=== PATIENT | female | born 1985 | race Asian ===

== ENCOUNTER 2017-06-01 16:26 | Outpatient (CLI) | payer MEDICAID ==
--- NOTE | 2017-06-02 18:26 | XRAY Report ---
EXAM: LEFT FOOT RADIOGRAPHY EXAM DATE: 06/01/2017 04:30 PM. CLINICAL HISTORY: FOOT PX LEFT. COMPARISON: None. TECHNIQUE: 3 views. FINDINGS: Bones: Normal. No fractures or bone lesions. Joints: Normal. No subluxations. Soft Tissues: Normal. No soft tissue swelling. IMPRESSION: Normal foot radiography. [facility] Referring Provider Line: [phone] SITE ID: [id number]
== END 2017-06-01 16:27 | disposition home or self-care (01) ==
LOC: DI.S 16:26
PROVIDERS: ATTEND Nurse Practitioner Family
DX: M79.672 Pain in left foot (principal)

== ENCOUNTER 2017-10-15 12:25 | Outpatient (CLI) | payer MEDICAID ==
--- NOTE | 2017-10-16 11:14 | Ultrasound Report ---
OB ULTRASOUND: 10/15/2017 CLINICAL INDICATION: anatomy. TECHNIQUE: Real-time scanning was performed with hospital sales representative static images obtained. LAST MENSTRUAL PERIOD 05/23/2017 Clinical Age 20 weeks 5 days US Age 21 weeks 0 days EFW Hadlock 392 g EFW% Hadlock --- Heart Rate 157 bpm EDC 02/27/2018 US EDC 02/25/2018 BPD [place] 21 weeks 2 days; Mean mm 50.5 HC [place] 20 weeks 5 days; Mean mm 184.1 AC [place]lock 21 weeks 3 days; Mean mm 164.5 FL [place]lock 20 weeks 3 days; Mean mm 33.3 Presentation variable Placental Location posterior Cervical Length 5.0 cm Amniotic Fluid 4.7 cm FINDINGS: There is a single viable intrauterine gestation, in variable position. heart rate is 157 BPM. The placenta is posterior, without evidence of previa. Amniotic fluid volume is subjectively normal, with the deepest pocket of 4.7 cm. By size, the fetus measures 21 weeks 0 days (20 weeks 5 days per physician order). The following anatomic structures were visualized and appear normal: The intracranial contents, including the ventricles and posterior fossa; the lips and orbits; the spine; the heart, including 4 chamber view and outflow tracts, and diaphragm; the abdominal contents, including the stomach, the bilateral kidneys, and urinary bladder, as well as a normal 3 vessel cord insertion; 4 limbs. No free fluid or adnexal lesion is appreciated. IMPRESSION: SINGLE VIABLE INTRAUTERINE GESTATION, WITH SIZE IN KEEPING WITH OFFICE DATING. NORMAL ANATOMIC SURVEY. [facility]
== END 2017-10-15 12:26 | disposition home or self-care (01) ==
LOC: DI 12:25
PROVIDERS: ATTEND Obstetrics & Gynecology
DX: Z36.9 Encounter for antenatal screening, unspecified (principal)
CPT/HCPCS: 76811

== ENCOUNTER 2017-10-30 08:27 | Outpatient (CLI) | payer MEDICAID | END 2017-10-30 08:28 | disposition home or self-care (01) | LOC: LAB.F 08:27 → LAB 08:28 | PROVIDERS: ATTEND Obstetrics & Gynecology | DX: Z36.9 Encounter for antenatal screening, unspecified (principal) | CPT/HCPCS: 36415; 82950; 85018; 86850 ==

== ENCOUNTER 2017-12-05 07:54 | Outpatient (CLI) | payer MEDICAID | END 2017-12-05 07:55 | disposition home or self-care (01) | LOC: LAB 07:54 | PROVIDERS: ATTEND Obstetrics & Gynecology | DX: Z34.90 Encounter for supervision of normal pregnancy, unspecified, unspecified trimester (principal) | CPT/HCPCS: 36415; 82950 ==

== ENCOUNTER 2023-09-19 14:55 | Outpatient (CLI) | payer MEDICAID ==
[2023-09-19 20:00] LABS: BASOPHILS % (AUTO) 0.3 %; EOSINOPHILS # (AUTO) 0.1 10^3/uL (0.0-0.7); EOSINOPHILS % (AUTO) 2.5 %; LYMPHOCYTES # (AUTO) 0.7 10^3/uL (1.5-3.5); LYMPHOCYTES % (AUTO) 19.1 %; MEAN CORPUSCULAR HEMOGLOBIN 18.1 pg (27.0-31.0); MEAN CORPUSCULAR HGB CONC 25.8 g/dL (32.0-36.0); MEAN CORPUSCULAR VOLUME 70.3 fL (81.0-99.0); MEAN PLATELET VOLUME 12.1 fL (7.9-10.8); MONOCYTES # (AUTO) 0.3 10^3/uL (0.0-1.0); MONOCYTES % (AUTO) 6.9 %; NEUTROPHILS # (AUTO) 2.6 10^3/uL (1.5-6.6); NEUTROPHILS % (AUTO) 70.6 %; PLT - PLATELET COUNT 252 10^3/uL (130-450); RED BLOOD COUNT 2.32 10^6/uL (4.20-5.40); RED CELL DISTRIBUTION WIDTH 16.1 % (12.0-15.0); WHITE BLOOD COUNT 3.6 x10^3/uL (4.8-10.8)
[2023-09-19 20:16] LABS: ALBUMIN 4.3 g/dL (3.2-5.5); ALKALINE PHOSPHATASE 44 IU/L (42-121); ALT ALANINE AMINOTRANSFERASE 50 IU/L (10-60); AST ASPARTATE AMINOTRANSFERASE 32 IU/L (10-42); BILIRUBIN,TOTAL 0.3 mg/dL (0.2-1.0); BUN - BLOOD UREA NITROGEN 7 mg/dL (6-20); CALCIUM 8.9 mg/dL (8.5-10.3); CARBON DIOXIDE - CO2 30 mmol/L (21-32); CHLORIDE 103 mmol/L (101-111); CREATININE 0.5 mg/dL (0.6-1.3); CRP - C-REACTIVE PROTEIN < 0.5 mg/dL (<0.5); GFR - MDRD 137 (>89); GLUCOSE 129 mg/dL (74-104); POTASSIUM 3.5 mmol/L (3.5-4.5); SODIUM 138 mmol/L (135-145); TOTAL PROTEIN 6.4 g/dL (6.4-8.9)
[2023-09-19 20:30] LABS: HCT - HEMATOCRIT 16.3 % (37.0-47.0); HGB - HEMOGLOBIN 4.2 g/dL (12.0-16.0)
[2023-09-19 21:04] LABS: PLATELET ESTIMATE, MANUAL NORMAL (130-450,000) (NORMAL); PLATELET MORPHOLOGY NORMAL APPEARANCE (NORMAL); SLIDE REVIEW? Indicated
== END 2023-09-19 14:56 | disposition home or self-care (01) ==
LOC: LAB.S 14:55
PROVIDERS: ATTEND Registered Nurse
DX: R00.2 Palpitations (principal); R51.9 Headache, unspecified; M54.2 Cervicalgia
CPT/HCPCS: 36415; 80053; 85025; 86140

== ENCOUNTER 2023-09-19 21:30 | Observation (INO) | payer MEDICAID ==
[2023-09-19 21:56] LABS: BASOPHILS % (AUTO) 0.3 %; EOSINOPHILS # (AUTO) 0.1 10^3/uL (0.0-0.7); LYMPHOCYTES # (AUTO) 0.9 10^3/uL (1.5-3.5); LYMPHOCYTES % (AUTO) 26.1 %; MEAN CORPUSCULAR HEMOGLOBIN 17.4 pg (27.0-31.0); MEAN CORPUSCULAR HGB CONC 24.7 g/dL (32.0-36.0); MEAN CORPUSCULAR VOLUME 70.5 fL (81.0-99.0); MEAN PLATELET VOLUME 11.3 fL (7.9-10.8); MONOCYTES # (AUTO) 0.3 10^3/uL (0.0-1.0); MONOCYTES % (AUTO) 9.3 %; NEUTROPHILS % (AUTO) 60.7 %; PLT - PLATELET COUNT 214 10^3/uL (130-450); RED BLOOD COUNT 2.24 10^6/uL (4.20-5.40); RED CELL DISTRIBUTION WIDTH 15.9 % (12.0-15.0); WHITE BLOOD COUNT 3.3 x10^3/uL (4.8-10.8)
[2023-09-19 22:00] LABS: HCT - HEMATOCRIT 15.8 % (37.0-47.0); HGB - HEMOGLOBIN 3.9 g/dL (12.0-16.0)
[2023-09-19 22:15] LABS: INR 1.1 (0.8-1.2); PT - PROTHROMBIN TIME 11.8 secs (9.9-12.6)
--- NOTE | 2023-09-19 22:16 | ED Physician Documentation ---
History of Present Illness - Stated complaint Stated Complaint: CANCHOLA/DIZZY - Chief complaint Chief Complaint: Neuro - History obtained from History obtained from: Patient - History of Present Illness Timing: Today Pain level max: 0 Pain level now: 0 - Additonal information Additional information: Patient is a 38-year-old female who has been feeling fatigued short of breath for the past several months. Went and saw the walk-in clinic today and had blood work done. Hemoglobin was 4.2. Sent here for evaluation. She states that she used to have menses that were 1 week long, but since having an IUD there down to 2 days. She states she does not eat much meat. Is not on any iron supplementation. Does not have heavy vaginal bleeding. No rectal bleeding. Not on any blood thinners. Worse with ambulation, better with rest. 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 - Present Medications Home Medications: Ambulatory Orders Medication Instructions Recorded Confirmed Meloxicam 15 mg PO DAILY 09/19/23 09/19/23 - Allergies Allergies/Adverse Reactions: Allergies Allergy/AdvReac Type Severity Reaction Status Date / Time Sulfa (Sulfonamide Allergy Severe Hives Verified 09/19/23 21:48 Antibiotics) - Social History Does the pt smoke?: No Smoking Status: Never smoker Does the pt drink ETOH?: No Does the pt have substance abuse?: No - Immunizations Immunizations are current?: Yes - POLST Patient has POLST: No PD ED PE NORMAL - Vitals Vital signs reviewed: Yes - General General: Alert and oriented X 3, No acute distress, Other (very pale appearing) - HEENT HEENT: PERRL, Other (pale conjunctiva) - Neck Neck: Supple, no meningeal sign - Cardiac Cardiac: RRR - Respiratory Respiratory: No respiratory distress, Clear bilaterally - Abdomen Abdomen: Soft, Non tender, Non distended - Female Female : Pt declined - Rectal Rectal: Pt declined - Derm Derm: Warm and dry - Extremities Extremities: No edema, No calf tenderness / cord - Neuro Neuro: Alert and oriented X 3 - Psych Psych: Normal mood, Normal affect Results - Vitals Vitals: Vital Signs - 24 hr 09/19/23 21:35 Temperature 37.2 C Heart Rate 100 Respiratory 14 Rate Blood Pressure 118/62 O2 Saturation 100 Oxygen O2 Source Room air - Labs Labs: Laboratory Tests 09/19/23 09/19/23 09/19/23 21:49 21:49 21:49 WBC 3.3 L RBC 2.24 L Hgb 3.9 L* Hct 15.8 L* MCV 70.5 L MCH 17.4 L MCHC 24.7 L RDW 15.9 H Plt Count 214 MPV 11.3 H Neut # (Auto) 2.0 Lymph # (Auto) 0.9 L [place] # (Auto) 0.3 Eos # (Auto) 0.1 Baso # (Auto) 0.0 Absolute Nucleated RBC 0.00 Nucleated RBC % 0.0 PT 11.8 INR 1.1 APTT 31.0 Sodium Potassium Chloride Carbon Dioxide Anion Gap BUN Creatinine Estimated GFR (MDRD) Glucose Calcium Total Bilirubin AST ALT Alkaline Phosphatase Total Protein Albumin Globulin Albumin/Globulin Ratio Urine Color Urine Clarity Urine pH Ur Specific [place] Urine Protein Urine Glucose (UA) Urine Ketones Urine Occult Blood Urine Nitrite Urine Bilirubin Urine Urobilinogen Ur Leukocyte Esterase Ur Microscopic Review Urine Culture Comments Urine HCG, Qual Blood Type O POSITIVE Antibody Screen NEGATIVE 09/19/23 09/19/23 21:49 22:35 WBC RBC Hgb Hct MCV MCH MCHC RDW Plt Count MPV Neut # (Auto) Lymph # (Auto) [place] # (Auto) Eos # (Auto) Baso # (Auto) Absolute Nucleated RBC Nucleated RBC % PT INR APTT Sodium 136 Potassium 3.4 L Chloride 104 Carbon Dioxide 27 Anion Gap 5.0 L BUN 9 Creatinine 0.6 Estimated GFR (MDRD) 111 Glucose 109 H Calcium 8.8 Total Bilirubin 0.2 AST 29 ALT 48 Alkaline Phosphatase 42 Total Protein 6.3 L Albumin 4.2 Globulin 2.1 Albumin/Globulin Ratio 2.0 Urine Color YELLOW Urine Clarity CLEAR Urine pH 7.0 Ur Specific [place] <=1.005 Urine Protein NEGATIVE Urine Glucose (UA) NEGATIVE Urine Ketones NEGATIVE Urine Occult Blood NEGATIVE Urine Nitrite NEGATIVE Urine Bilirubin NEGATIVE Urine Urobilinogen 0.2 (NORMAL) Ur Leukocyte Esterase NEGATIVE Ur Microscopic Review NOT INDICATED Urine Culture Comments NOT INDICATED Urine HCG, Qual NEGATIVE Blood Type Antibody Screen PD Medical Decision Making - ED course Complexity details: reviewed results, re-evaluated patient, considered differential, d/w patient, d/w investment consultant ED course: Patient is a 38-year-old female significant anemia. Hemoglobin of 3.9. MCV is 70.5, there is hypochromasia and microcytic anemia. Likely iron deficiency. Iron studies were sent. Patient is typed and screened. She will require several units of blood, therefore I will place her in observation. She is not on blood thinners. Does not have heavy menses currently. Not on iron supplementation. Discussed the case with the hospitalist who accepts. This document was made in part using voice recognition software. While efforts are made to proofread this document, sound alike and grammatical errors may occur. Departure - Departure Disposition: ED Place in Observation Clinical Impression: Symptomatic anemia Condition: Stable Forms: PCP List
[2023-09-19 22:28] LABS: ALBUMIN 4.2 g/dL (3.2-5.5); BILIRUBIN,TOTAL 0.2 mg/dL (0.2-1.0); CALCIUM 8.8 mg/dL (8.5-10.3); CREATININE 0.6 mg/dL (0.6-1.3); POTASSIUM 3.4 mmol/L (3.5-4.5); TOTAL PROTEIN 6.3 g/dL (6.4-8.9)
[2023-09-19 22:45] LABS: HCG UR QUAL NEGATIVE
[2023-09-19 22:47] LABS: BILIRUBIN,URINE NEGATIVE (NEGATIVE); GLUCOSE, URINE (UA) NEGATIVE (NEGATIVE); KETONES,URINE (UA) NEGATIVE (NEGATIVE); LEUKOCYTE ESTERASE, URINE NEGATIVE (NEGATIVE); NITRITE,URINE NEGATIVE (NEGATIVE); OCCULT BLOOD,URINE NEGATIVE (NEGATIVE); PROTEIN,URINE NEGATIVE (NEGATIVE); UROBILINOGEN,URINE 0.2 (NORMAL) E.U./dL (NORMAL)
[2023-09-19 22:48] LABS: CLARITY,URINE CLEAR (CLEAR)
--- NOTE | 2023-09-19 23:13 | HISTORY & PHYSICAL EXAMINATION ---
Chief Complaint - Chief Complaint Chief Complaint: anemia, fatigue History of Present Illness - Admitted From Admitted From:: home - History Obtained From History obtained from: patient Exam Limitations: telemedicine - History of Present Illness HPI Comment/Other: Ms Mcnally is a 38 yo F with history of C section several years ago, hemorrhoids related to previous pregnancies. She presents to ER from [facility] for further evaluation of anemia, found to have Hgb 3.9. Pt reports for the past 1-2 weeks she has been feeling tired, headaches. Last week she went hiking and had palpitations. Denies fevers, chills, cough, n/v. Denies hematemesis, hematuria. She states she has been having more bleeding from her hemorrhoids since last week, not painful, mainly with wiping but she did have use a pad one day for ongoing bleeding. No prior history of colonoscopy. No prior history of blood transfusion. IUD removed 4 months ago, has 2 days of period, light bleeding. No home medications except vitamin. Does not take iron supplements. Prescribed mobic today at walk in clinic for headache - took 1 dose today. 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 denies: Fever, Chills - Eyes Eyes: denies: Pain, Irritation - Ears, Nose & Throat Ears, Nose & Throat: denies: Ear pain, Hearing loss - Cardiovascular Cariovascular: reports: Palpitations, Lightheadedness. denies: Chest pain - Gastrointestinal Gastrointestinal: reports: Other (bleeding from hemorrhoids since last week). denies: Nausea, Vomiting - Genitourinary Genitourinary: denies: Dysuria, Frequency, Hematuria - Integumentary Integumentary: denies: Rash, Pruritis - Neurological Neurological: reports: Headache. denies: Focal weakness - Hematologic/Lymphatic Hematologic/Lymphatic: reports: Anemia Exam - Vital Signs Reviewed Vital Signs: Yes Vital Signs: Vital Signs x48h Temp Pulse Resp BP Pulse Ox 09/19/23 21:35 37.2 C 100 14 118/62 100 - Physical Exam General Appearance: positive: No acute distress Eyes Bilateral: positive: Normal inspection ENT: positive: ENT inspection nml Neck: positive: Nml inspection Respiratory: positive: No respiratory distress Skin: positive: Color nml, No rash Neurologic/Psychiatric: positive: Oriented x3, Mood/affect nml Conclusion/Plan - Lab Results Fish Bones: 09/19/23 21:49 09/19/23 21:49 - Other Other Results/Comments: Symptomatic microcytic anemia -Pt c/o fatigue, headaches, palpitations -Likely KENTRELL - iron studies are in process -Possibly related to bleeding hemorrhoids, no other known source of bleeding per patient -2 U PRBC ordered, trend H&H -Goal Hgb > 7 -Monitor closely Full code DVT ppx: SCDs Admit for observation. Telemedicine Consult Details - Provider Location & Consult Time Telemedicine consultation conducted via videoconferencing?: Yes List names and roles of persons who participated in consult:: patient, Dr Plasencia Telemedicine provider location:: [place], [place]
[2023-09-19] MEDS ORDERED: SODIUM CHLORIDE FLUSH 0.9% 10 ML SYRINGE IVP PRN (23:18)
[2023-09-19 23:25] LABS: IRON < 10 ug/dL (50-212); TOTAL IRON BINDING CAPACITY 519 ug/dL (250-450); TRANSFERRIN 371 mg/dL (203-362)
[2023-09-20] MEDS: SODIUM CHLORIDE FLUSH 0.9% 10 ML SYRINGE IVP SCH (00:08)
[2023-09-20 08:59] LABS: HCT - HEMATOCRIT 24.6 % (37.0-47.0); HGB - HEMOGLOBIN 7.1 g/dL (12.0-16.0)
--- NOTE | 2023-09-20 11:06 | PHARMACY PROGRESS NOTE ---
- Best Possible Medication History Admit Date and Time: 09/19/23 2138 Processed by: Nursing As the person ultimately responsible for medication therapy, providers are able to order a medication from an existing home medication list in [facility] via the "Reconcile Routine" prior to Confirmation of that medication by technician support engineer. Such practice is discouraged except when the physician, in their clinical judgment, deems that a medical need exists for a medication without regard to previous use.
[2023-09-20 15:09] LABS: HCT - HEMATOCRIT 23.9 % (37.0-47.0)
[2023-09-20 15:13] LABS: HGB - HEMOGLOBIN 6.9 g/dL (12.0-16.0)
[2023-09-20 19:04] VITALS: O2SAT 98
--- NOTE | 2023-09-20 19:35 | DISCHARGE SUMMARY ---
"Discharge Summary Admit Date: 09/19/23 Discharge Date: 09/20/23 Discharging Provider: Anam Quiles Primary Care Provider: She does not have a primary care provider at this time. Condition at Discharge: Good Discharge Disposition: Home, Self Care Discharge Facility Name: Home - DIAGNOSES Admission Diagnoses: 1 Symptomatic Anemia Discharge Diagnoses with Status of Each Condition: 1. Symptomatic Anemia 2. Iron deficiency Anemia - HPI History of Present Illness: Genet Mcnally is a 38-year-old woman who presented to an acute care clinic with complaints of feeling tired, headache and weakness. Hemoglobin was found to be 4.2. She was admitted as an observation patient and transfused 2 units of packed red blood cells. Her hemoglobin/hematocrit approximately 6 hours after second unit of packed red blood cells was 6.9/23.9 and she was transfused 1 more unit of packed red blood cells. Her chemistry panel was normal and her iron level was less than 10 with a TIBC of 519 and a transferrin of 371. Patient most likely has iron deficiency anemia and it was recommended that she take iron tablets every other day and establish care with a primary care provider. Prior to discharge, patient is alert and oriented to person time place and situation. She feels much better after receiving 3 units of packed red blood cells and she is hemodynamically stable. - HOSPITAL COURSE Hospital Course: See history of present illness - ALLERGIES Allergies/Adverse Reactions: Allergies Allergy/AdvReac Type Severity Reaction Status Date / Time Sulfa (Sulfonamide Allergy Severe Hives Verified 09/19/23 21:48 Antibiotics) - MEDICATIONS Home Medications Other | Comments: Recommend obtaining ferrous sulfate tablets (iron tablets) from a local pharmacy and take 1 tablet every other day. - PHYSICAL EXAM AT DISCHARGE General Appearance: positive: No acute distress Eyes Bilateral: positive: Normal inspection Neck: positive: No JVD, Trachea midline Cardiovascular: positive: Regular rate & rhythm, No murmur, No gallop Abdomen: positive: Non-tender, No organomegaly, Nml bowel sounds Skin: positive: No rash Extremities: positive: No pedal edema - LABS Result Diagrams: 09/20/23 15:00 09/19/23 21:49 - QUALITY (Female Hip Fx Only) Was patient sent home on osteoporosis medication?: No (No indication) - FOLLOW UP Follow Up: Recommend establishing care with a primary care provider in the area. If patient has difficulty finding a primary care provider she can contact me (Dr. Anam Quiles) at [phone]. - TIME SPENT Time Spent in Discharge (Minutes): 25"
--- NOTE | 2023-09-20 19:35 | Discharge Plan ---
Discharge Plan Problem Reviewed?: Yes Disposition: Home, Self Care Condition: Good Diet: Regular Activity Restrictions: Activity as Tolerated Shower Restrictions: No Driving Restrictions: No Weight Bearing: Full Weight Health Concerns: Genet Mcnally is a 38-year-old woman who presented to an acute care clinic with complaints of feeling tired, headache and weakness. Hemoglobin was found to be 4.2. She was admitted as an observation patient and transfused 2 units of packed red blood cells. Her hemoglobin/hematocrit approximately 6 hours after second unit of packed red blood cells was 6.9/23.9 and she was transfused 1 more unit of packed red blood cells. Her chemistry panel was normal and her iron level was less than 10 with a TIBC o f 519 and a transferrin of 371. Patient most likely has iron deficiency anemia and it was recommended that she take iron tablets every other day and establish care with a primary care provider. Prior to discharge, patient is alert and oriented to person time place and situation. She feels much better after receiving 3 units of packed red blood cells and she is hemodynamically stable. Plan of Treatment: 1. Take all medications as directed. 2. Recommend obtaining ferrous sulfate tablets (iron tablets) from a local pharmacy and take 1 tablet every other day. 3. Recommend obtaining Colace or other stool softener. Alternatively patient may eat 6 prunes a day and increase the fiber in her diet. 4. Recommend establishing care with a primary care provider in the area. 5. If patient has difficulty finding a primary care provider she can contact me (Dr. Anam Quiles) at [phone]. Care Goals: Goal is to have her blood counts return to her normal level. Assessment: The etiology of patient's anemia is not clear but most likely is secondary to iron deficiency anemia. She has no evidence of acute hemorrhage. Her menses appear to be normal with no significant change. She does complain of some bleeding associated with hemorrhoids intermittently. Plan is for her to establish care with a primary care provider and to take iron tablets every other day. No Smoking: If you smoke, Please STOP! Call for help. Follow-up with: HILARIO BARRERA MD [Physician No Access] -
[2023-09-20 21:17] VITALS: BP 111/64
== END 2023-09-20 21:33 | disposition home or self-care (01) ==
LOC: ED 21:30 → MS2 23:18
PROVIDERS: ADMIT Student in an Organized Health Care Education/Training Program; ATTEND Internal Medicine
DX: D50.9 Iron deficiency anemia, unspecified (principal); Z87.19 Personal history of other diseases of the digestive system
CPT/HCPCS: 36415; 36430; 80053; 81003; 81025; 83540; 84466; 85014; 85018; 85025; 85610; 85730; 86850; 86900; 86901; 86920; 99283; 99285; G0378; P9016; 81001; 87086

== ENCOUNTER 2023-10-17 08:58 | Outpatient (CLI) | payer MEDICAID ==
[2023-10-17 15:04] LABS: ABSOLUTE RETICS # AUTO 0.123 10^6/uL (0.020-0.110); BASOPHILS % (AUTO) 0.6 %; EOSINOPHILS # (AUTO) 0.1 10^3/uL (0.0-0.7); EOSINOPHILS % (AUTO) 3.4 %; HCT - HEMATOCRIT 29.1 % (37.0-47.0); HGB - HEMOGLOBIN 7.9 g/dL (12.0-16.0); LYMPHOCYTES # (AUTO) 0.5 10^3/uL (1.5-3.5); LYMPHOCYTES % (AUTO) 16.5 %; MEAN CORPUSCULAR HEMOGLOBIN 22.4 pg (27.0-31.0); MEAN CORPUSCULAR HGB CONC 27.1 g/dL (32.0-36.0); MEAN CORPUSCULAR VOLUME 82.7 fL (81.0-99.0); MEAN PLATELET VOLUME 10.8 fL (7.9-10.8); MONOCYTES # (AUTO) 0.2 10^3/uL (0.0-1.0); MONOCYTES % (AUTO) 7.5 %; NEUTROPHILS # (AUTO) 2.3 10^3/uL (1.5-6.6); PLT - PLATELET COUNT 240 10^3/uL (130-450); RED BLOOD COUNT 3.52 10^6/uL (4.20-5.40); RED CELL DISTRIBUTION WIDTH 21.8 % (12.0-15.0); RETICULOCYTE COUNT % (AUTO) 3.48 % (0.5-2.3); SLIDE REVIEW? Indicated; WHITE BLOOD COUNT 3.2 x10^3/uL (4.8-10.8)
[2023-10-17 15:37] LABS: PLATELET ESTIMATE, MANUAL NORMAL (130-450,000) (NORMAL); PLATELET MORPHOLOGY NORMAL APPEARANCE (NORMAL)
[2023-10-17 16:51] LABS: ALBUMIN 4.4 g/dL (3.2-5.5); ALBUMIN/GLOBULIN RATIO 1.9 (1.0-2.2); BILIRUBIN,TOTAL 0.5 mg/dL (0.2-1.0); CREATININE 0.5 mg/dL (0.6-1.3); POTASSIUM 3.8 mmol/L (3.5-4.5); TOTAL PROTEIN 6.7 g/dL (6.4-8.9)
[2023-10-17 17:32] LABS: THYROID STIMULATING HORMONE 1.11 uIU/mL (0.34-5.60)
[2023-10-17 17:38] LABS: FERRITIN 6.1 ng/mL (11.0-306.8)
== END 2023-10-17 08:59 | disposition home or self-care (01) ==
LOC: LAB.S 08:58
PROVIDERS: ATTEND Family Medicine
DX: D64.9 Anemia, unspecified (principal)
CPT/HCPCS: 36415; 80053; 81599; 82728; 84443; 85025; 85045; 85660

== ENCOUNTER 2023-11-29 08:53 | Outpatient (CLI) | payer MEDICAID ==
[2023-11-29 14:36] LABS: EOSINOPHILS % (AUTO) 4.3 %; HCT - HEMATOCRIT 44.1 % (37.0-47.0); HGB - HEMOGLOBIN 12.8 g/dL (12.0-16.0); LYMPHOCYTES % (AUTO) 22.4 %; MEAN CORPUSCULAR HEMOGLOBIN 24.3 pg (27.0-31.0); MEAN CORPUSCULAR VOLUME 83.7 fL (81.0-99.0); MEAN PLATELET VOLUME 11.1 fL (7.9-10.8); MONOCYTES % (AUTO) 10.4 %; NEUTROPHILS % (AUTO) 61.9 %; PLT - PLATELET COUNT 209 10^3/uL (130-450); RED BLOOD COUNT 5.27 10^6/uL (4.20-5.40); RED CELL DISTRIBUTION WIDTH 17.9 % (12.0-15.0)
[2023-11-29 15:48] LABS: ABNORMAL LYMPHS % (MANUAL) 3 %; BAND NEUTROPHILS % (MANUAL) 1 %; BASOPHILS % (MANUAL) 1 %; DIFFERENTIAL COMMENT MANUAL DIFFERENTIAL; EOSINOPHILS # (MANUAL) 0.2 10^3/uL (0-0.7); LYMPHOCYTES # (MANUAL) 0.6 10^3/uL (1.5-3.5); LYMPHOCYTES % (MANUAL) 15 %; METAMYELOCYTES % (MANUAL) 1 %; MONOCYTES # (MANUAL) 0.2 10^3/uL (0.0-1.0); NEUTROPHILS # (MANUAL) 2.1 10^3/uL (1.5-6.6); PLATELET ESTIMATE, MANUAL NORMAL (130-450,000) (NORMAL); PLATELET MORPHOLOGY NORMAL APPEARANCE (NORMAL); REACTIVE LYMPHS % (MANUAL) 1 %
== END 2023-11-29 08:54 | disposition home or self-care (01) ==
LOC: LAB.S 08:53
PROVIDERS: ATTEND Family Medicine
DX: D64.9 Anemia, unspecified (principal)
CPT/HCPCS: 36415; 85025

== ENCOUNTER 2024-01-25 11:08 | Outpatient (CLI) | payer MEDICAID ==
[2024-01-25 14:31] LABS: BASOPHILS % (AUTO) 0.7 %; EOSINOPHILS # (AUTO) 0.2 10^3/uL (0.0-0.7); HCT - HEMATOCRIT 42.1 % (37.0-47.0); HGB - HEMOGLOBIN 13.2 g/dL (12.0-16.0); LYMPHOCYTES # (AUTO) 0.9 10^3/uL (1.5-3.5); LYMPHOCYTES % (AUTO) 20.3 %; MEAN CORPUSCULAR HEMOGLOBIN 26.2 pg (27.0-31.0); MEAN CORPUSCULAR HGB CONC 31.4 g/dL (32.0-36.0); MEAN CORPUSCULAR VOLUME 83.7 fL (81.0-99.0); MEAN PLATELET VOLUME 10.8 fL (7.9-10.8); MONOCYTES # (AUTO) 0.3 10^3/uL (0.0-1.0); MONOCYTES % (AUTO) 6.8 %; NEUTROPHILS # (AUTO) 3.1 10^3/uL (1.5-6.6); PLT - PLATELET COUNT 264 10^3/uL (130-450); RED BLOOD COUNT 5.03 10^6/uL (4.20-5.40); RED CELL DISTRIBUTION WIDTH 17.4 % (12.0-15.0); WHITE BLOOD COUNT 4.6 x10^3/uL (4.8-10.8)
[2024-01-29 16:19] LABS: T-TRANSGLUTAMINASE (TTG) IGA <2 U/mL (0-3); T-TRANSGLUTAMINASE (TTG) IGG 5 U/mL (0-5)
[2024-01-30 04:10] LABS: ENDOMYSIAL IGA Negative (Negative)
== END 2024-01-25 11:09 | disposition home or self-care (01) ==
LOC: LAB.S 11:08
PROVIDERS: ATTEND Student in an Organized Health Care Education/Training Program
DX: D64.9 Anemia, unspecified (principal); Z13.810 Encounter for screening for upper gastrointestinal disorder
CPT/HCPCS: 36415; 82728; 82784; 85025; 86231; 86364

== ENCOUNTER 2024-02-08 07:16 | Outpatient (CLI) | payer MEDICAID ==
[2024-02-08 15:01] LABS: HCT - HEMATOCRIT 41.3 % (37.0-47.0); HGB - HEMOGLOBIN 12.6 g/dL (12.0-16.0); MEAN CORPUSCULAR HEMOGLOBIN 26.9 pg (27.0-31.0); MEAN CORPUSCULAR HGB CONC 30.5 g/dL (32.0-36.0); MEAN CORPUSCULAR VOLUME 88.2 fL (81.0-99.0); MEAN PLATELET VOLUME 10.9 fL (7.9-10.8); RED BLOOD COUNT 4.68 10^6/uL (4.20-5.40); RED CELL DISTRIBUTION WIDTH 16.8 % (12.0-15.0); WHITE BLOOD COUNT 3.9 x10^3/uL (4.8-10.8)
[2024-02-08 16:03] LABS: THYROID STIMULATING HORMONE 1.11 uIU/mL (0.34-5.60)
[2024-02-08 16:07] LABS: FERRITIN 42.9 ng/mL (11.0-306.8)
[2024-02-08 16:09] LABS: PROLACTIN 8.34 ng/mL
== END 2024-02-08 07:17 | disposition home or self-care (01) ==
LOC: LAB.S 07:16
PROVIDERS: ATTEND Family Medicine
DX: D64.9 Anemia, unspecified (principal); Z13.811 Encounter for screening for lower gastrointestinal disorder; N92.6 Irregular menstruation, unspecified
CPT/HCPCS: 36415; 82728; 83001; 84146; 84443; 85027

== ENCOUNTER 2024-04-11 08:13 | Emergency (ER) | payer MEDICAID ==
[2024-04-11 09:19] LABS: BASOPHILS % (AUTO) 0.8 %; EOSINOPHILS # (AUTO) 0.2 10^3/uL (0.0-0.7); EOSINOPHILS % (AUTO) 4.8 %; HGB - HEMOGLOBIN 13.2 g/dL (12.0-16.0); LYMPHOCYTES # (AUTO) 0.9 10^3/uL (1.5-3.5); LYMPHOCYTES % (AUTO) 25.2 %; MEAN CORPUSCULAR HEMOGLOBIN 30.3 pg (27.0-31.0); MEAN CORPUSCULAR HGB CONC 33.8 g/dL (32.0-36.0); MEAN CORPUSCULAR VOLUME 89.4 fL (81.0-99.0); MEAN PLATELET VOLUME 10.5 fL (7.9-10.8); MONOCYTES # (AUTO) 0.3 10^3/uL (0.0-1.0); MONOCYTES % (AUTO) 6.7 %; NEUTROPHILS # (AUTO) 2.3 10^3/uL (1.5-6.6); NEUTROPHILS % (AUTO) 62.5 %; PLT - PLATELET COUNT 186 10^3/uL (130-450); RED BLOOD COUNT 4.36 10^6/uL (4.20-5.40); WHITE BLOOD COUNT 3.7 x10^3/uL (4.8-10.8)
[2024-04-11 09:21] LABS: BILIRUBIN,URINE NEGATIVE (NEGATIVE); GLUCOSE, URINE (UA) NEGATIVE (NEGATIVE); KETONES,URINE (UA) NEGATIVE (NEGATIVE); LEUKOCYTE ESTERASE, URINE NEGATIVE (NEGATIVE); NITRITE,URINE NEGATIVE (NEGATIVE); OCCULT BLOOD,URINE NEGATIVE (NEGATIVE); PH,URINE 6.5 PH (5.0-7.5); PROTEIN,URINE NEGATIVE (NEGATIVE); UROBILINOGEN,URINE 0.2 (NORMAL) E.U./dL (NORMAL)
[2024-04-11 09:22] LABS: CLARITY,URINE CLEAR (CLEAR); HCG UR QUAL NEGATIVE
[2024-04-11 09:39] LABS: ALBUMIN 4.6 g/dL (3.2-5.5); ALBUMIN/GLOBULIN RATIO 1.6 (1.0-2.2); BILIRUBIN,TOTAL 0.7 mg/dL (0.2-1.0); CALCIUM 9.1 mg/dL (8.5-10.3); CREATININE 0.5 mg/dL (0.6-1.3); POTASSIUM 3.8 mmol/L (3.5-4.5); TOTAL PROTEIN 7.4 g/dL (6.4-8.9)
--- NOTE | 2024-04-11 12:01 | ED Physician Documentation ---
PD HPI GI BLEED - Stated complaint Stated Complaint: BLOATING, GI BLOOD IN STOOL - Chief complaint Chief Complaint: Abd Pain - History obtained from History obtained from: Patient - Additional information Additional information: The patient comes to the emergency department chief complaint of lower GI bleeding after having a hemorrhoid banding 2 and half weeks ago. She states that Dr. Jama did her surgery in the office and that she has been doing fairly well since. However, she began to have some bleeding about 2 days ago. She denies any change in her diet or any change in the consistency of her stools. She states that she would noticed that when she sat down on the toilet to urinate. She states that sometimes the toilet bowl is filled with bright red and she is concerned because she has previously had to have blood transfusions for unknown reasons before. She is afraid that bleeding on top of what ever her underlying problem is will cause her to lose too much blood. She denies any lightheadedness, shortness of breath, chest pain, or fatigue. No abdominal pain but she has been a little bloated. Occasional bloody residue on her underwear and she has been wearing a pad. However, she states the amount is small and she has not had any bleeding outside of when she is on the toilet, this morning. She has a follow-up with Dr. Jama coming up in April. No other complaints at this time. 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 - Present Medications Home Medications: Ambulatory Orders Medication Instructions Recorded Confirmed Pnv No.121/Iron/Folic Acid 1 tab PO DAILY 11/09/23 11/09/23 [ Multivitamin Tablet] Vitamin B Complex 1 tab PO DAILY 11/09/23 11/09/23 - Allergies Allergies/Adverse Reactions: Allergies Allergy/AdvReac Type Severity Reaction Status Date / Time Sulfa (Sulfonamide Allergy Severe Hives Verified 04/11/24 08:34 Antibiotics) - Social History Does the pt smoke?: No Smoking Status: Never smoker Does the pt drink ETOH?: No Does the pt have substance abuse?: No - Immunizations Immunizations are current?: Yes - POLST Patient has POLST: No PD ED PE NORMAL - Vitals Vital signs reviewed: Yes - General General: Alert and oriented X 3, No acute distress, Well developed/nourished - HEENT HEENT: Atraumatic, PERRL, EOMI, Moist mucous membranes - Neck Neck: Supple, no meningeal sign - Cardiac Cardiac: RRR, No murmur - Respiratory Respiratory: No respiratory distress, Clear bilaterally - Abdomen Abdomen: Soft, Non tender, Non distended - Rectal Rectal: Other (Normal external anatomy with no active bleeding noted. There is some bloody residue perianally. Mild tenderness globally on digital rectal exam. A small firm area is palpable internally and consistent with a banded hemorrhoid. Mild residue of maroon blood on the glove.) - Derm Derm: Normal color, Warm and dry, No rash - Extremities Extremities: No deformity - Neuro Neuro: Other (Alert, grossly intact.) - Psych Psych: Normal mood, Normal affect Results - Vitals Vitals: Vital Signs - 24 hr 04/11/24 08:34 Temperature 36.6 C Heart Rate 85 Respiratory 16 Rate Blood Pressure 119/90 H O2 Saturation 100 Oxygen O2 Source Room air - Labs Labs: Laboratory Tests 04/11/24 04/11/24 04/11/24 09:10 09:11 09:11 WBC 3.7 L RBC 4.36 Hgb 13.2 Hct 39.0 MCV 89.4 MCH 30.3 MCHC 33.8 RDW 12.0 Plt Count 186 MPV 10.5 Neut # (Auto) 2.3 Lymph # (Auto) 0.9 L [place] # (Auto) 0.3 Eos # (Auto) 0.2 Baso # (Auto) 0.0 Absolute Nucleated RBC 0.00 Nucleated RBC % 0.0 Sodium 141 Potassium 3.8 Chloride 104 Carbon Dioxide 33 H Anion Gap 4.0 L BUN 8 Creatinine 0.5 L Estimated GFR (MDRD) 137 Glucose 94 Calcium 9.1 Total Bilirubin 0.7 AST 15 ALT 18 Alkaline Phosphatase 50 Total Protein 7.4 Albumin 4.6 Globulin 2.8 Albumin/Globulin Ratio 1.6 Lipase 22 Urine Color YELLOW Urine Clarity CLEAR Urine pH 6.5 Ur Specific [place] <=1.005 Urine Protein NEGATIVE Urine Glucose (UA) NEGATIVE Urine Ketones NEGATIVE Urine Occult Blood NEGATIVE Urine Nitrite NEGATIVE Urine Bilirubin NEGATIVE Urine Urobilinogen 0.2 (NORMAL) Ur Leukocyte Esterase NEGATIVE Ur Microscopic Review NOT INDICATED Urine Culture Comments NOT INDICATED Urine HCG, Qual NEGATIVE PD Medical Decision Making - ED course Complexity details: considered differential, d/w patient ED course: The patient's H&H were normal, and she was hemodynamically stable. She did not appear to have obvious active bleeding though she had some recent bleeding evident on exam. I consulted Dr. Jama who did come and see the patient in the ED and perform anoscopy. He felt that the patient was stable for now and that she could follow-up as needed. We have discussed symptomatic management at home and the need to follow-up in surgery clinic both as scheduled and for further concerns if needed. We have discussed the usual indications for return to the emergency department. Departure - Departure Disposition: Home, Self Care Clinical Impression: Hematochezia, History of exam under anesthesia with hemorrhoid banding Condition: Stable Instructions: ED Hemorrhoids, ED Hematochezia Stable Comments: Your blood work looks good today. You have been seen by Dr. Jama who has examined you and feels that things are stable for now. You should follow-up with him as planned and for further concerns. If you are bleeding heavily and you begin to feel lightheaded or have shortness of breath or chest pain, please return to the emergency department. Otherwise, you can take an [id number] iron supplement every day and speak with your primary doctor about whether you should have any further follow-up to address the issues that caused you to have a transfusion earlier this year. Right now, your blood levels are completely normal.
[2024-04-11 12:14] VITALS: BP 113/70; O2SAT 99
--- NOTE | 2024-04-11 15:31 | CONSULTATION NOTE ---
Referring Provider Consult Date: 04/11/24 Chief Complaint - Chief Complaint Chief Complaint: bleeding into toilet, on tissue. red and dark blood. History of Present Illness - History Obtained From Records Reviewed: yes History obtained from: pt Exam Limitations: none - History of Present Illness HPI Comment/Other: history bleeding following bm on and off for over a year. on exam in the surgery office nearly 3 weeks ago she had an anal fissure and large hemorrhoid 11:00 which was banded. bleeding yesterday was slightly worse than what she has had previously. History - Past Medical History Cardiovascular: reports: None Respiratory: reports: None Neuro: reports: None Endocrine/Autoimmune: reports: None : reports: Other - Past Surgical History /[employer]: reports: section - POLST Patient has POLST: No Meds/Allgy - Home Medications Home Medications: Ambulatory Orders Medication Instructions Recorded Confirmed Pnv No.121/Iron/Folic Acid 1 tab PO DAILY 11/09/23 11/09/23 [ Multivitamin Tablet] Vitamin B Complex 1 tab PO DAILY 11/09/23 11/09/23 - Allergies Allergies/Adverse Reactions: Allergies Allergy/AdvReac Type Severity Reaction Status Date / Time Sulfa (Sulfonamide Allergy Severe Hives Verified 04/11/24 08:34 Antibiotics) Exam - Vital Signs Vital Signs: Vital Signs x48h Temp Pulse Resp BP Pulse Ox 04/11/24 12:12 75 16 113/70 99 04/11/24 08:34 36.6 C 85 16 119/90 H 100 - Physical Exam General Appearance: positive: No acute distress, Alert Eyes Bilateral: positive: PERRL, EOMI, No scleral icterus ENT: positive: No signs of dehydration Rectal: positive: Other (anal fissure present anoscopy old blood. small amount. no active bleeding) Neurologic/Psychiatric: positive: Oriented x3 Conclusion and Plan - Lab Results Laboratory Results 04/11/24 09:11: Sodium 141, Potassium 3.8, Chloride 104, Carbon Dioxide 33 H, Anion Gap 4.0 L, BUN 8, Creatinine 0.5 L, Estimated GFR (MDRD) 137, Glucose 94, Calcium 9.1, Total Bilirubin 0.7, AST 15, ALT 18, Alkaline Phosphatase 50, Total Protein 7.4, Albumin 4.6, Globulin 2.8, Albumin/Globulin Ratio 1.6, Lipase 22 04/11/24 09:11: WBC 3.7 L, RBC 4.36, Hgb 13.2, Hct 39.0, MCV 89.4, MCH 30.3, MCHC 33.8, RDW 12.0, Plt Count 186, MPV 10.5, Neut # (Auto) 2.3, Lymph # (Auto) 0.9 L, [place] # (Auto) 0.3, Eos # (Auto) 0.2, Baso # (Auto) 0.0, Absolute Nucleated RBC 0.00, Nucleated RBC % 0.0 04/11/24 09:10: Urine Color YELLOW, Urine Clarity CLEAR, Urine pH 6.5, Ur Specific [place] <=1.005, Urine Protein NEGATIVE, Urine Glucose (UA) NEGATIVE, Urine Ketones NEGATIVE, Urine Occult Blood NEGATIVE, Urine Nitrite NEGATIVE, Urine Bilirubin NEGATIVE, Urine Urobilinogen 0.2 (NORMAL), Ur Leukocyte Esterase NEGATIVE, Ur Microscopic Review NOT INDICATED, Urine Culture Comments NOT INDICATED, Urine HCG, Qual NEGATIVE - Diagnosis Diagnosis: anal fissure and large internal hemorrhoid with past bleeding - Plan Plan: observation. continue anal fissure cream twice daily. if bleeding with several bloody bms per day plan exam under anesthesia in the operation room. this is unlikely to occur. plan ok for d/c. follow up prn
== END 2024-04-11 12:17 | disposition home or self-care (01) ==
LOC: ED 08:13
DX: K92.1 Melena (principal); Z98.890 Other specified postprocedural states
CPT/HCPCS: 36415; 80053; 81001; 81003; 81025; 83690; 85025; 87086; 99283

== ENCOUNTER 2024-04-24 10:35 | Outpatient (CLI) | payer MEDICAID | END 2024-04-24 10:36 | disposition home or self-care (01) | LOC: NS 10:35 | PROVIDERS: ATTEND Family Medicine | DX: D64.9 Anemia, unspecified (principal); N92.6 Irregular menstruation, unspecified | CPT/HCPCS: 97802 ==